=== PATIENT | male | born 1960 | race Caucasian/White ===

== ENCOUNTER 2025-02-27 07:52 | Emergency (ER) | payer BC, SELFPAY ==
[2025-02-27] VITALS (7 sets, daily range): BP systolic 140–169; BP diastolic 80–92; BMI 22.3
[2025-02-27 08:49] LABS: Hematocrit 40.7 % (39.0-52.0); Hemoglobin 14.1 g/dL (13.0-18.0); Mean Corp Hgb Conc. 34.6 g/dL (33.0-37.0); Mean Corpuscular Volume 89.1 fL (80.0-94.0); Nucleated Red Blood Cells % 0 % (-); Platelet Count 163 10^3/uL (130-400); Red Cell Dist. Width 12.2 % (11.5-14.5)
[2025-02-27 09:09] LABS: ALT (SGPT) 28 U/L (0-50); AST (SGOT) 26 U/L (17-59); Albumin 4.7 g/dl (3.5-5.0); Alkaline Phosphatase 94 U/L (38-126); Blood Urea Nitrogen 20 mg/dl (9-20); Calcium 9.7 mg/dl (8.4-10.2); Carbon Dioxide 30 mmol/L (22-30); Chloride 99 mmol/L (98-107); Glucose 160 mg/dl (70-99); Potassium 5.4 mmol/L (3.5-5.1); Sodium 135 mmol/L (135-145); Total Protein 7.1 g/dl (6.3-8.2); eGFR > 60.00
[2025-02-27 09:19] LABS: Troponin I < 0.012 ng/ml
--- NOTE | 2025-02-27 10:44 | ED.GENMED ---
History of Present Illness
General
Chief Complaint: Cardiac Symptoms
Source: patient and spouse
Exam Limitations: none
Time Seen by Provider: 02/27/25 10:07
History of Present Illness
History of Present Illness:
See MDM
Past History
Past History
ED Past Medical History: CAD
ED Past Surgical History: Cardiac
Social History
Personal:
Living: with family
Phy Exam
Physical Exam
Physical Exam:
See MDM
Course
Orders/Labs/Results
Orders:
Orders
02/27/25 07:59
Electrocardiogram (*1) Urgent
Reason for Study: Bradycardia / Tachycardia
EKG- Treatment ONCE
02/27/25 08:26
Complete Blood Count/With Diff Urgent
Comprehensive Metabolic Panel Urgent
TSH Urgent
Comment: ADD ON
Troponin I Urgent
02/27/25 08:39
Add On- LAB Urgent
Tests Added?: TSH
02/27/25 10:42
CT Chest PE Study Urgent
Comment:
Reason For Exam: SOB, chest pressure, tachycardic
0.9% Sodium Chloride 1000 ml [Nss] 1,000 ml IV BOLUS
HydrOXYZINE [Atarax] 25 mg PO NOW STA
Sodium Zirconium Cyclosilicate [Lokelma] 5 gram PO NOW STA
Abnormal Lab Results
02/27/25
08:26
RBC 4.57 L 10^6/uL
(4.70-6.10)
Absolute Lymphs (auto) 0.4 L 10^3/uL
(1.2-3.4)
Neutrophils % 82.9 H %
(42.2-75.2)
Lymphocytes % 6.4 L %
(20.5-51.1)
Monocytes % 9.7 H %
(1.7-9.3)
Potassium 5.4 H mmol/L
(3.5-5.1)
Glucose 160 H mg/dl
(70-99)
02/27/25 08:26
02/27/25 08:26
Vital Signs
Initial and Last Documented VS:
Initial Vital Signs
Temp Pulse Resp BP Pulse Ox
98.2 F 100 16 163/89 98
02/27/25 08:10 02/27/25 08:10 02/27/25 08:10 02/27/25 08:10 02/27/25 08:10
Last Documented Vital Signs
Temp Pulse Resp BP Pulse Ox
98.6 F 94 9 169/92 99
02/27/25 11:02 02/27/25 10:30 02/27/25 10:30 02/27/25 10:29 02/27/25 10:47
MDM/Problems Addressed
Differential Diagnosis Includes:
Note:
CHIEF COMPLAINT(S)
Elevated heart rate and feeling of hollowness in the chest.
HISTORY OF PRESENT ILLNESS
The patient is a 65-year-old male with a history of coronary artery disease and prior open-heart surgery 22 years ago. He received two stents a year ago in [place]. Currently, he is experiencing an elevated heart rate, consistently recorded between
90-110 beats per minute, which is atypical for him as his morning heart rate is usually around 59. The patient also reports a non-specific sensation in his chest described as a 'hollowness,' but denies outright pain. He has also experienced weakness
in his legs for the past couple of weeks to a month and persistent lightheadedness over the past year. Despite consulting a neurologist and a restaurant operations manager, these symptoms remain unchanged and unexplained. Due to his insurance change, pt plans to
switch over to a new restaurant operations manager after March 14. He is concerned this elevated heart rate might signify an underlying issue that is affecting his quality of life.
The patient is also experiencing elevated blood pressure and has a history of irregular management of his medications which include metoprolol 25 mg, clopidogrel 75 mg, and atorvastatin 80 mg. His thyroid testing is pending, and currently,
laboratory results show a mild hyperkalemia with potassium level of 5.4 mEq/L, blood pressure is slightly elevated, but renal function is normal.
PAST MEDICAL AND SURGICAL HISTORY
- Coronary artery disease
- Open-heart surgery (CABG) 22 years ago
- Stent placement a year ago
CHRONIC MEDICAL CONDITIONS SIGNIFICANTLY AFFECTING CARE
Chronic conditions affecting care include coronary artery disease and hypertension.
SOCIAL DETERMINANTS OF HEALTH
- The patient reported previous difficulties with finding consistent healthcare providers, leading to gaps in treatment and management.
- Financial concerns due to an upcoming change in his health plan, which will be expensive and has influenced his decision on healthcare provider transitions.
PHYSICAL EXAM
General: Alert, no acute distress.
Skin: Warm, dry.
Head: Normocephalic, atraumatic
Neck: Appears supple, trachea midline.
Eyes, Ears, Nose, Mouth, and Throat: Moist mucous membranes
Cardiovascular: No signs of cyanosis. Regular rate and rhythm. Tachycardia resolved while I was in the room
Respiratory: Respirations are non-labored.
Abdomen: Non-distended
Musculoskeletal: No deformities. No leg edema
Neurological: No focal neurological deficit observed.
Psychiatric: Cooperative, appropriate mood and affect.
DIFFERENTIAL DIAGNOSIS
The Differential Diagnosis includes, in no particular order and is not limited to:
- Arrhythmia
- Hyperthyroidism
- Anxiety disorder
- Pulmonary embolism
- Heart failure
- Electrolyte imbalance (Hyperkalemia)
- Anemia
- Medication side effects
- Dehydration
- Tachycardia secondary to systemic illness
PLAN
1. Rule out pulmonary embolism with a CT scan.
2. Check thyroid function as an elevated thyroid could contribute to symptoms.
3. Manage mild hyperkalemia with Lokelma to avoid potassium levels rising further.
4. Provide fluids for potential dehydration and monitor response.
5. Address patient anxiety with hydroxizine for symptom relief while monitoring vitals.
6. Set up follow-up with a new restaurant operations manager after insurance transition.
7. Utilize a cardiac callback tracker to expedite cardiology appointment if needed.
MEDICATION RECONCILIATION
- Patient is currently on metoprolol 25 mg, clopidogrel 75 mg, and atorvastatin 80 mg.
- Lokelma provided to manage mild hyperkalemia.
- Hydroxizine provided for anxiety management during the visit.
MEDICAL DECISION MAKING
-Complexity of Data Reviewed: Chronic conditions affecting care include coronary artery disease and hypertension.
-Data:
Category 1
- EKG was reviewed.
- Lab test reviewed include elevated potassium levels and awaiting thyroid function test results.
- Independent CT scan interpretation will be performed for potential pulmonary embolism.
Category 3
- Discussion of management and interpretation with other healthcare providers.
-Risk:
- Consideration of Admission/Observation: Escalation of care including admission/observation was considered given the complexity and risk of the patients presenting complaint, exam findings, and underlying comorbidities. However, ultimately, patient
is safe for outpatient management with close follow-up. Reasoning: Work-up reassuring, no acute life/organ-threatening processes, symptoms well-controlled upon reevaluation, stable vitals, patient agreeable with discharge and reliable for follow-up.
DIAGNOSIS
1. Tachycardia, unspecified (R00.0)
2. Elevated Blood Pressure Reading, Without Diagnosis of Hypertension (R03.0)
3. Hyperkalemia (E87.5)
4. Dyslipidemia (E78.5)
5. Coronary Artery Disease (I25.10)
6. Gait and Mobility Abnormalities (R26.2)
7. Dizziness (R42)
SUMMARY OF ENCOUNTER
The patient, a 65-year-old male, presented with complaints of feeling a hollowness in his chest, occasional episodes of tachycardia, and generalized weakness. He has a history of coronary artery disease and has undergone coronary artery bypass
grafting 22 years ago, along with stent placement a year ago. Given his symptoms and medical history, a CT scan was ordered to rule out a pulmonary embolism, which returned negative for any embolism. However, an incidental finding of an
uncharacterized liver lesion was noted, which will require outpatient follow-up.
DISPOSITION
Discharge.
ASSESSMENT
The patient presented with symptoms that could be associated with tachycardia and non-specific chest sensations. The CT scan ruled out a pulmonary embolism, suggesting that his symptoms are likely not due to an acute cardiopulmonary condition. The
incidental liver lesion requires further evaluation.
EMERGENCY TREATMENTS ADMINISTERED
Hydroxyzine was provided for anxiety management related to his symptoms.
PLAN
1. Rule out pulmonary embolism. CT scan negative for PE.
2. Discuss findings, including incidental liver lesion, with patient for outpatient follow-up.
3. Cardiac callback tracker placed.
4. Referral to family medicine clinic for further evaluation and management of the liver lesion.
5. Continues with current medications: metoprolol, clopidogrel, atorvastatin, and hydroxyzine for symptomatic relief.
INDEPENDENT REVIEW OF LABS AND INTERPRETATION OF TESTS
- My independent review of the CT scan is negative for pulmonary embolism, with an incidental finding of a liver lesion requiring further outpatient evaluation.
PATIENT EDUCATION AND COUNSELING
Discussed the importance of follow-up and management of the incidental liver lesion with the patient. Encouraged compliance with current medications and importance of transitioning care to new providers.
FOLLOW-UP INSTRUCTIONS
Referral provided for the family medicine clinic for follow-up on the uncharacterized liver lesion and ongoing symptoms. Patient to contact new healthcare provider upon insurance transition for continuity of care.
MEDICAL DECISION MAKING
-Complexity of Data Reviewed: Chronic conditions affecting care include coronary artery disease and hypertension. Differential diagnosis includes arrhythmia, hyperthyroidism, anxiety disorder, heart failure, electrolyte imbalance (hyperkalemia),
anemia, medication side effects, dehydration, and tachycardia secondary to systemic illness.
-Data:
Category 1
- My independent review of CT scan negative for pulmonary embolism.
-Risk:
Consideration of Admission/Observation: Escalation of care including admission/observation was considered given the complexity and risk of the patients presenting complaint, exam findings, and their underlying comorbidities. However, ultimately I
feel the patient is safe for outpatient management with close follow-up. Reasoning: Work-up reassuring, does not reveal any acute life/organ-threatening processes, patients symptoms well-controlled upon reevaluation, reexamination is reassuring,
vitals are stable, patient agreeable with discharge, reliable for follow-up.
DIAGNOSIS
1. Tachycardia, unspecified (R00.0)
2. Coronary Artery Disease (I25.10)
3. Uncharacterized Liver Lesion (R93.2)
4. Elevated Blood Pressure Reading, Without Diagnosis of Hypertension (R03.0)
*Pulse Oximetry
SaO2: 99
Oxygen Mode of Delivery: Room air
Patient hypoxic: no
*Critical Care Note
Total Time (30-74mins, 75-104mins- exclusive of procedures): Not Applicable
ED Attending Note
-
Portions of this chart may have been created with voice recognition software.� Occasional wrong word or��sound alike� substitutions may have occurred due to the inherent limitations of voice recognition software.
Discharge Plan
Departure
Patient Disposition: Home (Routine Discharge)
Date of Disposition: 02/27/25
Time of Disposition: 12:25
Patient with high blood pressure during this ER visit?: Yes
Discharge Problem:
Tachycardia, Acute hyperkalemia, Acute hyperglycemia
Instructions: Chest Pain CBC Follow Up, BLOOD PRESSURE
Prescriptions:
No Action
atorvastatin 10 MG tablet
10 mg PO QPM
aspirin 325 MG tablet
325 mg PO DAILY
folic acid 0.4 MG tablet
0.4 mg PO DAILY
Referrals:
[facility] [Provider Group]
Richard Sim MD [Active, Cardiology]
Maximo Carney DO [Family Provider, Family Practice]
Activity Restrictions/Additional Instructions:
Please return for any worsening symptoms.
You may return at any time if you have further concerns.
Please follow up with your doctor at the first available appointment, preferably this week.
You were placed on the cardiac callback tracker. Someone from their office should call you in the next few days. If you do not hear from them in the next few days, please give them a call.
Thank you for choosing [facility].
Interventions
Interventions:
*General Assessment Last Done: 02/27/25 08:10
*Neglect/Abuse Screening Last Done: 02/27/25 08:10
*ED COVID-19 Vaccine History Last Done: 02/27/25 08:10
*ED Influenza Vaccine History Last Done: 02/27/25 08:10
[facility] Fall Risk Assessment Tool Last Done: 02/27/25 10:15
*Risk Screen - Suicide (C-SSRS) Last Done: 02/27/25 08:10
ED- Pulmonary Assessment Last Done: 02/27/25 10:15
ED- Cardiac Assessment Last Done: 02/27/25 10:15
Discharge Date and Time
Print Language: [place]
[2025-02-27] MEDS: LOKELMA 5 GRAM PO (10:53)
[2025-02-27] MEDS: ATARAX 25 MG PO (10:53)
[2025-02-27] MEDS: NSS 1000 IV (10:54)
[2025-02-27 11:34] LABS: TSH 0.78 uIU/ml (0.47-4.68)
== END 2025-02-27 12:43 | disposition home or self-care (01) ==
LOC: EMR 07:52
PROVIDERS: Emergency Medicine; EMERGENCY PHYSICIAN Student in an Organized Health Care Education/Training Program; FAMILY PHYSICIAN Family Medicine
DX: R00.0 Tachycardia, unspecified (principal); E87.5 Hyperkalemia; R73.9 Hyperglycemia, unspecified; K76.9 Liver disease, unspecified; I25.810 Atherosclerosis of coronary artery bypass graft(s) without angina pectoris; I10 Essential (primary) hypertension; E78.5 Hyperlipidemia, unspecified; Z79.02 Long term (current) use of antithrombotics/antiplatelets; Z95.1 Presence of aortocoronary bypass graft; Z95.5 Presence of coronary angioplasty implant and graft
CPT/HCPCS: 99284; 96360; 71275; 80053; 84443; 84484; 85025; 93005; Q9967